=== PATIENT | male | born 1955 | race Caucasian/White ===

== ENCOUNTER 2018-08-26 21:42 | Emergency (ER) | payer BC, SELFPAY ==
[2018-08-26 21:48] VITALS: BP 122/70; PULSE 69; RESP 18; TEMP 36.1; O2SAT 98
--- NOTE | 2018-08-26 21:57 | ED.EAR ---
HPI - Ear Problem <Sravani Rodrigez PA-C - Last Filed: 08/26/18 22:08> General Chief complaint: Ear Stated complaint: part of hearing aid stuck in ear Time Seen by Provider: 08/26/18 21:57 Source: patient Mode of arrival: ambulatory Limitations: no limitations History of Present Illness HPI Narrative: This 63-year-old male states that a piece of his hearing aid came off in his ear a short time ago and he was unable to remove it. He is not having any pain, no drainage from the ear or any other new complaints on systems review. He is feeling well otherwise Related Data Home Medications Medication Instructions Recorded Confirmed naproxen sodium 220 mg tablet 440 mg PO BID PRN 06/03/18 08/04/18 Previous Rx's Medication Instructions Recorded bupropion HCl SR 100 mg tablet,12 100 mg PO BID #60 each 06/03/18 hr sustained-release meloxicam 15 mg tablet 15 mg PO DAILY #30 tab 08/15/18 Allergies Allergy/AdvReac Type Severity Reaction Status Date / Time No Known Allergies Allergy Uncoded 06/03/18 15:00 Review of Systems <Sravani Rodrigez PA-C - Last Filed: 08/26/18 22:08> Review of Systems ROS Unobtainable: All systems reviewed & are unremarkable except as noted in HPI and below PFSH <Sravani Rodrigez PA-C - Last Filed: 08/26/18 22:08> Medical History (Updated 08/26/18 @ 22:07 by Sravani Rodrigez PA-C) Dupuytren contracture (Chronic) Smoker (Chronic) H/O adenomatous polyp of colon (Inactive ~05/2013) No pertinent family history (Acute) Surgical History (Updated 08/26/18 @ 22:07 by Sravani Rodrigez PA-C) No pertinent past surgical history (Acute) Social History Smoking Status: Current every day smoker Social History Smoking Status: Current every day smoker Exam <Sravani Rodrigez PA-C - Last Filed: 08/26/18 22:08> Narrative Exam Narrative: GENERAL APPEARANCE: Patient sitting comfortably, in no distress. HEENT: PERRL, EOMI, both TMs are intact with normal light reflexes, minimal cerumen on the left, no erythema or drainage (after removal of foreign body) LUNGS: Clear to auscultation bilaterally. HEART: Rate and rhythm regular without murmur, normal S1 and S2, no S3 or S4. Initial Vital Signs Initial Vital Signs: Vital Signs Temperature 96.9 F L 08/26/18 21:48 Pulse Rate 69 08/26/18 21:48 Respiratory Rate 18 08/26/18 21:48 Blood Pressure 122/70 08/26/18 21:48 Pulse Oximetry 98 08/26/18 21:48 <Lesley De Luna DO - Last Filed: 08/27/18 02:30> Initial Vital Signs Initial Vital Signs: Vital Signs Temperature 96.9 F L 08/26/18 21:48 Pulse Rate 69 08/26/18 21:48 Respiratory Rate 18 08/26/18 21:48 Blood Pressure 122/70 08/26/18 21:48 Pulse Oximetry 98 08/26/18 21:48 Course <Sravani Rodrigez PA-C - Last Filed: 08/26/18 22:08> Vital Signs - 8 hr 08/26/18 21:48 Temperature 96.9 F L Pulse Rate 69 Respiratory Rate 18 Blood Pressure 122/70 Pulse Oximetry 98 <Lesley De Luna DO - Last Filed: 08/27/18 02:30> Vital Signs - 8 hr 08/26/18 21:48 Temperature 96.9 F L Pulse Rate 69 Respiratory Rate 18 Blood Pressure 122/70 Pulse Oximetry 98 Discharge Plan Departure Patient Disposition: Home Clinical Impression: Foreign body in left ear, initial encounter Discharge Date/Time: 08/26/18 22:22 Interventions: ED Discharge Assessment Last Done: 08/26/18 22:22 Instructions: DI for Removal of Foreign Body From Ear Activity Restrictions/Additional Instructions: Your ear canal appears normal now, no signs of irritation or infection. Please see your PCP if your ear does not continue to feel normal over the next few days. Prescriptions: No Action meloxicam 15 mg tablet 15 mg PO DAILY Qty: 30 RF: 3 naproxen sodium [Aleve] 220 mg tablet 440 mg PO BID PRNRF: 0 Hold Instructions: While on Ketorolac bupropion HCl 100 mg tablet sustained-release 12 hr 100 mg PO BID Qty: 60 RF: 3 Referrals: Bony Hargrove MD [Primary Care Provider] - <Lesley De Luna DO - Last Filed: 08/27/18 02:30> Cosign ED Attending Delaney Attestation: I was immediately available in the department for consultation. Documentation has been reviewed. I agree with assessment and plan.
== END 2018-08-26 22:22 | disposition home or self-care (01) ==
PROVIDERS: Emergency Provider Internal Medicine; Family Provider Internal Medicine; PCP Internal Medicine
DX: T16.2XXA Foreign body in left ear, initial encounter (principal)
CPT/HCPCS: 99282

== ENCOUNTER 2018-10-06 12:52 | Day surgery (SDC) | payer BC, SELFPAY ==
--- NOTE | 2018-10-06 | PATH_ITS ---
[facility] Accession Number: [id number] . 01 Material submitted: . sigmoid colon - SIGMOID POLYP . 02 Diagnosis: Sigmoid Colon, Polyp: Hyperplastic polyp. Additional step sections examined. [facility]/10/09/2018 . 02 Electronically signed: . Tulio Dangelo MD, PhD, Pathologist NPI- [id number] . 01 Gross description: . SIGMOID POLYP: Received in formalin are 2 fragment(s) of willis, soft tissue measuring 0.5 x 0.3 x 0.3 cm to 0.3 x 0.2 x 0.2 cm submitted entirely in 1 cassette(s) /CKI /CKI . 02 Pathologist provided ICD-10: K63.5 . 02 CPT . 299161 Performed at: 01 [facility] [address] [place] [address], [place], [place] [id number] MD Adis Oneill MD Phone: [phone] Performed at: 02 [facility] [address] [place], [place] [id number] MD Ashley Parr MD Phone: [phone]
[2018-10-06 13:25] VITALS: BP 123/75; PULSE 87; RESP 16; TEMP 36.3; O2SAT 99; BMI 19.8
[2018-10-06] MEDS: SODIUM CHLORIDE 0.9% 1,000 ML 200 ML IV (13:28)
--- NOTE | 2018-10-06 15:03 | P.HP_ITS ---
History of Present Illness Date Patient Seen: 10/06/18 Time Patient Seen: 15:01 Chief complaint: [id number] SCREENING COLONOSCOPY Narrative: 63yo M for surveillance colonoscopy. Last in 2013 and he said a pre- cancerous polyp was found so he went back for a rectal surgery. No current symptoms. Patient History Medical History Dupuytren contracture (Chronic) Smoker (Chronic) H/O adenomatous polyp of colon (Inactive ~05/2013) No pertinent family history (Acute) Surgical History No pertinent past surgical history (Acute) Social History household members: none Smoking Status: Current every day smoker Family & Social History Social History: household members none Tobacco & Substance use: Smoking Status Current every day smoker Meds Home Medications Medication Instructions Recorded Confirmed Type bupropion HCl SR 100 mg tablet,12 100 mg PO BID #60 each 06/03/18 10/06/18 Rx hr sustained-release meloxicam 15 mg tablet 15 mg PO DAILY #90 tab 09/18/18 10/06/18 Rx Allergies Allergy/AdvReac Type Severity Reaction Status Date / Time No Known Allergies Allergy Uncoded 10/06/18 13:30 Review of Systems Constitutional Constitutional: Reports as per HPI Exam Vital Signs (past 8 hours): - 10/06/18 13:25 Temperature 97.4 F L Pulse Rate 87 Respiratory Rate 16 Blood Pressure 123/75 Pulse Oximetry 99 Oxygen Delivery Method Room Air Narrative Exam Narrative: AAO, NAD, male of healthy weight EOMI, MMM, no scleral icterus unlabored RA soft, nt/nd MAEW visible skin dry and intact Assessment & Plan Assessment & Plan narrative: - surveillance colonoscopy --> all R/B/A discussed and pt wishes to proceed
[2018-10-06] MEDS: MIDAZOLAM 5 MG/5 ML VIAL IV ×2 (15:38)
[2018-10-06] MEDS: fentaNYL 250 MCG/5 ML INJ IV (15:40)
[2018-10-06 15:47] VITALS: BP 120/84; PULSE 68; RESP 12; TEMP 36.3; O2SAT 97
--- NOTE | 2018-10-06 15:48 | P.OP.ENDO_ITS ---
Operative Date/Time/Diagnoses Date of procedure: 10/06/18 Time of procedure: 15:45 Pre-op diagnosis: history of colon polyps Post-op diagnosis: same Procedure & Clinicians Study performed: Surveillance Colonoscopy Same procedure as scheduled: Yes Indications: 63yo M with history of a pre-cancerous polyp removed via reported rectal surgery 5 years ago. This is his first surveillance scope. No symptoms. Surgeon: Skylar Jackson Procedure Notes SCOAP/Timeout: 1506 Procedure in detail: After obtaining informed consent, the patient was brought to the GI suite and placed in the left lateral decubitus position on the e xamination table. After placement of appropriate monitors, the patient was given incremental doses of Versed and Fentanyl until an appropriate level of sedation was achieved. A time out was held per SCOAP protocol. A digital rectal examination was performed and did not reveal any masses or obstructing lesions but a mildly enlarged prostate is noted. The colonoscope was gently passed into the patient's anus and the entire colon navigated to the level of the cecum with some difficulty due to a tortuous colon. Prep was adequate. Once in the cecum, the scope was slowly withdrawn being sure to go before and beyond all mucosal folds and prominences as able to get a thorough examination. A single 2mm sigmoid polyp is noted and removed for biopsy. Other findings include a few scattered diverticula. No specific scar or anastomosis is noted in the rectum At the level of the rectal vault, the scope was retroflexed and the internal anal canal was examined. The scope was straightened and air aspirated from the colon. The instrument was removed from the patient's body and the procedure was concluded. The patient was allowed to awaken from sedation without difficulty and taken to the post-anesthesia care unit in good condition. Scope withdrawal time: 11 min Sedation minutes: 36 Findings: diverticulosis (few, scattered) and polyp (sigmoid (40cm), 2mm) Specimen(s): other (sigmoid polyp) Complications: none Impression: 1. Small, scattered diverticulosis 2. 2mm sigmoid polyp- removed for biopsy 3. Tortuous colon Recommendations: Colonscopy in 5 years (pending path) and High fiber diet Follow up: weeks Disposition: PACU
[2018-10-06 15:52] VITALS: BP 111/76; PULSE 68; RESP 12; O2SAT 96
[2018-10-06 15:56] VITALS: BP 118/75; PULSE 66; RESP 13; O2SAT 97
[2018-10-06 16:01] VITALS: BP 116/73; PULSE 67; RESP 8; O2SAT 97
[2018-10-06 16:45] VITALS: BP 120/70; PULSE 60; RESP 20; TEMP 36.8; O2SAT 99
== END 2018-10-06 16:45 | disposition home or self-care (01) ==
PROVIDERS: Family Provider Internal Medicine; PCP Internal Medicine; Visit Provider Surgery
PROC: 0DJD8ZZ Inspection of Lower Intestinal Tract, Via Natural or Artificial Opening Endoscopic (ICD-10-PCS; CPT 45378; principal; 2018-10-06 16:00)
DX: Z86.010 Personal history of colon polyps (principal); K57.30 Diverticulosis of large intestine without perforation or abscess without bleeding; F17.210 Nicotine dependence, cigarettes, uncomplicated; D12.5 Benign neoplasm of sigmoid colon
CPT/HCPCS: 45380; 99152; 99153; J2250; J3010

== ENCOUNTER → 2018-10-25 07:57 | Outpatient (CLI) | payer BC, SELFPAY ==
[2018-10-25 09:34] LABS: Alanine Aminotransferase 23 IU/L (21-72); Albumin 4.3 g/dL (3.5-5.0); Albumin Globulin Ratio 1.7 (1.0-2.8); Alkaline Phosphatase 58 U/L (38-126); Aspartate Aminotransferase 22 IU/L (17-59); BUN Creatinine Ratio 28.8 (6-22); Bilirubin Total 0.6 mg/dL (0.2-1.3); Blood Urea Nitrogen 23 mg/dL (9-20); Calcium 9.6 mg/dL (8.4-10.2); Carbon Dioxide 31 mmol/L (22-32); Chloride 102 mmol/L (98-107); Cholesterol 173 mg/dL (140-199); Estimated Glomerular Filt Rate > 60.0 mL/min (>60); Globulin 2.5 g/dL (1.7-4.1); Glucose 93 mg/dL (80-110); HDL Cholesterol 83 mg/dL (40-60); HEMOLYSIS < 15 (0-50); LDL Cholesterol Calculated 80 mg/dL (<100); Sodium 141 mmol/L (137-145); Total Protein 6.8 g/dL (6.3-8.2); Triglycerides 50 mg/dL (35-150)
[2018-10-25 09:41] LABS: Potassium 5.5 mmol/L (3.4-5.1)
[2018-10-25 10:01] LABS: Prostate Specific Antigen Scrn 1.46 ng/mL (0.1-4.0)
== END ==
PROVIDERS: Family Provider Internal Medicine; PCP Internal Medicine; Visit Provider Internal Medicine
DX: Z00.00 Encounter for general adult medical examination without abnormal findings (principal); Z12.5 Encounter for screening for malignant neoplasm of prostate; Z13.1 Encounter for screening for diabetes mellitus; Z13.6 Encounter for screening for cardiovascular disorders
CPT/HCPCS: 36415; 80053; 80061; G0103

== ENCOUNTER → 2019-06-04 16:13 | Outpatient (CLI) | payer MEDICARE, OTHER, SELFPAY ==
--- NOTE | 2019-06-04 16:21 | DI.RAD.S_ITS ---
PROCEDURE: XR HIP W PEL IF DONE RT 2V INDICATIONS: RIGHT HIP PAIN TECHNIQUE: AP pelvis with lateral view(s) of the left and right hip(s). COMPARISON: None. FINDINGS: Bones: No fractures or dislocations. Pelvic ring appears intact. No suspicious bony lesions. Mild degeneration, with symmetric appearance. Lower lumbar spondylosis and facet arthropathy. Soft tissues: The visualized bowel gas pattern is normal. No suspicious soft tissue calcifications. IMPRESSION: Mild bilateral hip joint degeneration Dictated by: Jose Pete M.D. on 06/04/2019 at 17:24 Approved by: Jose Pete M.D. on 06/04/2019 at 17:25
== END ==
PROVIDERS: Family Provider Internal Medicine; PCP Internal Medicine; Referring Provider Internal Medicine; Visit Provider Internal Medicine
DX: M25.551 Pain in right hip (principal); M16.0 Bilateral primary osteoarthritis of hip
CPT/HCPCS: 73502

== ENCOUNTER → 2019-06-05 08:09 | Outpatient (CLI) | payer MEDICARE, BC, SELFPAY ==
[2019-06-05 09:00] LABS: Alanine Aminotransferase 46 IU/L (<50); Albumin 4.1 g/dL (3.5-5.0); Albumin Globulin Ratio 1.5 (1.0-2.8); Alkaline Phosphatase 66 U/L (38-126); Aspartate Aminotransferase 36 IU/L (17-59); BUN Creatinine Ratio 24.4 (6-22); Bilirubin Total 0.5 mg/dL (0.2-1.3); Blood Urea Nitrogen 22 mg/dL (9-20); Calcium 9.6 mg/dL (8.4-10.2); Carbon Dioxide 30 mmol/L (22-32); Chloride 105 mmol/L (98-107); Cholesterol 190 mg/dL (140-199); Estimated Glomerular Filt Rate > 60.0 mL/min (>60); Globulin 2.8 g/dL (1.7-4.1); Glucose 95 mg/dL (80-110); HDL Cholesterol 65 mg/dL (40-60); HEMOLYSIS < 15 (0-50); LDL Cholesterol Calculated 113 mg/dL (<100); Sodium 140 mmol/L (137-145); Total Protein 6.9 g/dL (6.3-8.2); Triglycerides 62 mg/dL (35-150)
[2019-06-05 09:03] LABS: Potassium 5.5 mmol/L (3.4-5.1)
[2019-06-05 09:25] LABS: Prostate Specific Antigen Scrn 1.09 ng/mL (0.1-4.0)
== END ==
PROVIDERS: Family Provider Internal Medicine; PCP Internal Medicine; Referring Provider Internal Medicine; Visit Provider Internal Medicine
DX: Z13.6 Encounter for screening for cardiovascular disorders (principal); Z12.5 Encounter for screening for malignant neoplasm of prostate
CPT/HCPCS: 36415; 80053; 80061; G0103

== ENCOUNTER → 2019-08-22 15:03 | Outpatient (CLI) | payer MEDICARE, BC, SELFPAY ==
[2019-08-23 08:28] LABS: COVID19 Sendout Not Detected (Not Detect)
== END ==
PROVIDERS: Family Provider Internal Medicine; PCP Internal Medicine; Visit Provider Physician Assistant
DX: Z01.818 Encounter for other preprocedural examination (principal)
CPT/HCPCS: 87635

== ENCOUNTER 2019-08-25 08:15 | Day surgery (SDC) | payer MEDICARE, OTHER, SELFPAY ==
[2019-08-19 11:35] VITALS: BMI 22.9
--- NOTE | 2019-08-21 14:20 | SUR.PREOP ---
per pt has covid testing schd on Thursday 08/24 @ [facility]
[2019-08-25] VITALS (8 sets, daily range): BP systolic 100–120; BP diastolic 56–75; PULSE 54–79; RESP 10–16; TEMP 36.6–36.9; O2SAT 93–100; BMI 22.9
[2019-08-25] MEDS: LACTATED RINGERS 1,000 ML 42 ML IV (08:32)
--- NOTE | 2019-08-25 10:22 | PM.PREOP ---
Pre-operative Note COVID-19 COVID-19 status: Negative Result date/Date tested (Pos, Neg/Pending): 08/22/19 Interval Note History & Physical reviewed/Exam performed by Physician: Yes Changes to H&P: No
[2019-08-25] MEDS: CEFAZOLIN 2 GM/100 ML FROZ.PIGGY IV (10:25)
--- NOTE | 2019-08-25 10:48 | SUR.OPER ---
Supine on padded OR bed, head on pillow, arms secured on padded arm boards at <90 degrees abduction, legs uncrossed, safety belt at thigh, tape over blanket over lower legs.
[2019-08-25] MEDS: BUPIVACAINE 0.5% (PF) VIAL 30 ML INJ (10:53)
[2019-08-25] MEDS: HYDROCODONE/ACET 5/325 TABLET 1 TAB PO (12:01)
--- NOTE | 2019-08-25 18:14 | PM.OP.1 ---
Operative Date/Time/Diagnoses Date of procedure: 08/25/19 Time of procedure: 11:31 Pre-op diagnosis: Reducible right inguinal hernia. Post-op diagnosis: same (Direct hernia) Procedure & Clinicians Procedure: Repair with plug and patch technique Same procedure as scheduled: Yes Indications: Patient is a gentleman with a symptomatic right inguinal hernia brought in for repair. Surgeon: Mike Saba Click Yes if Unassisted: Yes Anesthesia Type: General Operative Notes Findings: Direct right inguinal hernia. Closure Type: primary Specimen(s): none sent Prosthetic devices, grafts, tissues, transplants, or devices: Mesh. Large plug and patch used Estimated Blood Loss (mL): 5 Blood products transfused: none Procedure in detail: The patient was placed supine on the operating room table and underwent general LMA anesthesia. He was prepped and draped in the usual fashion. A transverse incision was made overlying the right internal ring and carried down to the level of the external oblique. The external oblique was opened parallel with its fibers through the external ring. The cord structures were elevated. The cremaster was opened proximally and search made for an indirect sac. None was found. The floor was examined and was found to be obliterated by hernia. The thin layer which was a remnant of the transversalis was opened and the underlying preperitoneal fat reduced. A large plug was placed in the defect and tacked into place with interrupted sutures. A patch was placed across the floor and tacked at the pubic tubercle, the posterior lamella of the anterior rectus sheath, the ilioinguinal ligament, and superior lateral to the cord. The opening was modified as necessary to prevent tight constriction of the cord. Sutures of 0 Ethibond were used to secure the mesh. The external oblique was closed with a running 3 0 Vicryl. The subcu was closed with interrupted 3 0 Vicryl. The skin was closed with a running 4 0 Vicryl subcuticular stitch and Steri-Strips. Dressing was applied, the patient was awakened, and the patient was taken to the recovery area in good condition. Complications: none Post-operative Condition: stable Disposition: PACU
== END 2019-08-25 13:00 | disposition home or self-care (01) ==
PROVIDERS: Family Provider Internal Medicine; PCP Internal Medicine; Referring Provider Specialist; Visit Provider Specialist
PROC: (CPT 49505; principal; 2019-08-25 09:15)
DX: K40.90 Unilateral inguinal hernia, without obstruction or gangrene, not specified as recurrent (principal); F17.210 Nicotine dependence, cigarettes, uncomplicated
CPT/HCPCS: 49505; C1781; J0690; J1100; J2250; J2405; J2704; J3010

== ENCOUNTER 2020-06-23 07:18 | Emergency (ER) | payer OTHER, SELFPAY ==
[2020-06-23 07:20] VITALS: BP 175/83; PULSE 85; RESP 15; TEMP 37; O2SAT 93; BMI 20.4
--- NOTE | 2020-06-23 07:37 | PC.NURSE ---
see injury assessment. Pt having upper back pain and right knee pain
--- NOTE | 2020-06-23 07:40 | PC.NURSE ---
Pts pH bilateral eye 7.0
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
[2020-06-23] MEDS: IBUPROFEN 400 MG TABLET PO (07:55)
[2020-06-23] MEDS: OXYCODONE/ACETAMINOPHEN 5/325 TABLET 1 TAB PO (07:55)
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
[2020-06-23 09:22] VITALS: BP 119/71; PULSE 74; O2SAT 96
== END 2020-06-23 09:23 | disposition home or self-care (01) ==
PROVIDERS: Emergency Provider Emergency Medicine; Family Provider Internal Medicine; PCP Internal Medicine
DX: S16.1XXA Strain of muscle, fascia and tendon at neck level, initial encounter (principal); V43.52XA Car driver injured in collision with other type car in traffic accident, initial encounter
CPT/HCPCS: 72072; 99283

== ENCOUNTER → 2020-07-21 17:14 | Outpatient (CLI) | payer OTHER, SELFPAY ==
--- NOTE | 2020-07-21 17:16 | DI.RAD.S_ITS ---
PROCEDURE: XR PELVIS 1-2V INDICATIONS: left and right hip pain TECHNIQUE: 1 view(s) of the pelvis acquired. COMPARISON: [facility], CR, XR HIP W PEL IF DONE RT 2V, 06/04/2019, 16:16. FINDINGS: Bones: No fractures or dislocations. No suspicious bony lesions. Mild joint narrowing with periarticular osteophyte formation. Soft tissues: Visualized bowel gas pattern is normal. No suspicious soft tissue calcifications. IMPRESSION: Mild symmetric hip joint degeneration unchanged from prior examination dated 06/04/2019 Dictated by: Mitch Voss [facility] Interpreted: Judson Mckeon MD on 07/22/2020 at 8:55 Approved by: Judson Mckeon M.D. on 07/22/2020 at 10:21
== END ==
PROVIDERS: Family Provider Internal Medicine; PCP Internal Medicine; Referring Provider Internal Medicine; Visit Provider Internal Medicine
DX: M16.11 Unilateral primary osteoarthritis, right hip (principal); M25.552 Pain in left hip; M25.551 Pain in right hip
CPT/HCPCS: 72170

== ENCOUNTER → 2020-12-29 12:55 | Outpatient (CLI) | payer OTHER, MEDICARE, SELFPAY ==
--- NOTE | 2020-12-29 12:59 | DI.RAD.S_ITS ---
PROCEDURE: XR LUMBAR SPINE 2-3V INDICATIONS: low back pain TECHNIQUE: 3 views of the lumbar spine were acquired. COMPARISON: None. FINDINGS: Bones: 5 [id number] vertebrae are present. There is mild straightening of normal lumbar lordosis. Degenerative endplate changes and bilateral facet arthrosis at L2-3 through L4-5 levels are seen.. No vertebral body compression fractures. No suspicious bony lesions. Soft tissues: Overlying bowel gas pattern is normal. No suspicious soft tissue calcifications. IMPRESSION: Mild degenerative disc disease in lumbar spine as above. No acute compression fracture or significant spondylolisthesis. Dictated by: Mitchel Santos M.D. on 12/29/2020 at 16:01 Approved by: Mitchel Santos M.D. on 12/29/2020 at 16:02
== END ==
PROVIDERS: Family Provider Internal Medicine; PCP Internal Medicine; Referring Provider Nurse Practitioner Family; Visit Provider Nurse Practitioner Family
DX: M54.5 Low back pain (principal); M51.36 Other intervertebral disc degeneration, lumbar region; M47.816 Spondylosis without myelopathy or radiculopathy, lumbar region
CPT/HCPCS: 72100

== ENCOUNTER → 2024-02-20 10:15 | Outpatient (CLI) | payer OTHER, SELFPAY ==
[2024-02-20 11:34] LABS: Influenza A - CEPHEID Flu A NEGATIVE (NEGATIVE); Influenza B - CEPHEID Flu B NEGATIVE (NEGATIVE); Respiratory Syncytial Virus Negative (Negative)
[2024-02-20 11:36] LABS: COVID-19 CEPHEID 4-PLEX PCR Negative (Negative)
== END ==
PROVIDERS: Family Provider Internal Medicine; PCP Internal Medicine; Visit Provider Nurse Practitioner Family
DX: R05.9 Cough, unspecified (principal); R53.81 Other malaise; R53.83 Other fatigue
CPT/HCPCS: 0241U

== ENCOUNTER → 2024-02-20 10:26 | Outpatient (CLI) | payer OTHER, SELFPAY ==
--- NOTE | 2024-02-20 10:28 | DI.RAD.S_ITS ---
PROCEDURE: XR CHEST 2V INDICATIONS: Cough TECHNIQUE: 2 views of the chest were acquired. COMPARISON: None. FINDINGS: Surgical changes and devices: None. Lungs and pleura: Multifocal opacities, most pronounced within the left mid and lower lung durán. Rounded nodule at the right base, may represent a nipple shadow. Mediastinum: Mediastinal contours are normal. Heart size is normal. Bones and chest wall: No suspicious bony abnormalities. Soft tissues appear unremarkable. IMPRESSION: Multifocal opacities, most pronounced within the right mid and lower lung field. Findings are most consistent with multifocal pneumonia. Recommend follow-up imaging after appropriate treatment to ensure resolution. Rounded nodule at the right lung base, may represent a nipple shadow. Attention on follow-up radiograph or continued low-dose chest CT lung cancer screening. Dictated by: Francisco Carlos M.D. on 02/20/2024 at 14:23 Approved by: Francisco Carlos M.D. on 02/20/2024 at 14:25
== END ==
PROVIDERS: Family Provider Internal Medicine; PCP Internal Medicine; Referring Provider Nurse Practitioner Family; Visit Provider Nurse Practitioner Family
DX: R05.9 Cough, unspecified (principal); R53.81 Other malaise; R53.83 Other fatigue; R91.1 Solitary pulmonary nodule
CPT/HCPCS: 0241U; 71046

== ENCOUNTER 2024-04-22 17:31 | Emergency (ER) | payer OTHER, SELFPAY ==
[2024-04-22 17:41] VITALS: BP 150/85; PULSE 76; RESP 14; TEMP 36.6; O2SAT 100; BMI 20.4
[2024-04-22 20:03] VITALS: BP 153/86; PULSE 70; RESP 16; O2SAT 100
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
[2024-04-22 21:20] VITALS: BP 110/70; PULSE 69; RESP 18; O2SAT 98
== END 2024-04-22 21:22 | disposition home or self-care (01) ==
PROVIDERS: Emergency Provider Emergency Medicine
DX: S16.1XXA Strain of muscle, fascia and tendon at neck level, initial encounter (principal); V89.2XXA Person injured in unspecified motor-vehicle accident, traffic, initial encounter
CPT/HCPCS: 72040; 99281; 99283

== ENCOUNTER 2024-06-17 13:02 | Emergency (ER) | payer OTHER, SELFPAY ==
[2024-06-17 13:06] VITALS: BP 141/81; PULSE 70; RESP 18; TEMP 36.6; O2SAT 100; BMI 21.1
--- NOTE | 2024-06-17 13:06 | DI.RAD.S_ITS ---
PROCEDURE: XR CHEST 1V INDICATIONS: chest pain TECHNIQUE: One view of the chest was acquired. COMPARISON: [facility], CR, XR CHEST 2V, 02/20/2024, 10:27. FINDINGS: Surgical changes and devices: None. Lungs and pleura: Lungs are clear. No pleural effusions or pneumothorax. Mediastinum: Mediastinal contours appear normal. Heart size is normal. Bones and chest wall: No suspicious bony lesions. Overlying soft tissues appear unremarkable. IMPRESSION: No acute cardiopulmonary pathology. Dictated by: Mitchel Santos M.D. on 06/17/2024 at 14:05 Approved by: Mitchel Santos M.D. on 06/17/2024 at 14:05
--- NOTE | 2024-06-17 13:15 | EKG_ITS ---
[id number] [address] Test Date: 2024-06-17 Pat Name: Gurpreet Peña Department: Room: Gender: Male Supervisor Baking: ROBB : 1955 Requested By: Order Number: [id number] Reading MD: Bony Hargrove MD Measurements Intervals [place] Rate: 63 P: 86 AR: 154 QRS: 85 QRSD: 82 T: 71 QT: 396 QTc: 405 Interpretive Statements Normal sinus rhythm Possible Left atrial enlargement Electronically Signed On 06-18-2024 7:28:28 PDT by Bony Hargrove MD
[2024-06-17] MEDS: ASPIRIN 81 MG CHEW TAB 324 MG PO (13:27)
[2024-06-17 13:38] LABS: Add Manual Diff / Slide Review NO; Basophils Absolute Auto 100 /uL (0-100); Basophils Percent Auto 1.8 % (0-2); Eosinophils Absolute Auto 100 /uL (0-450); Eosinophils Percent Auto 1.6 % (2-4); Hematocrit 46.2 % (41-53); Hemoglobin 15.4 g/dL (13.5-17.5); Lymphocytes Absolute Auto 1300 /uL (1100-4500); Lymphocytes Percent Auto 18.6 % (25-40); Mean Corpuscular HGB Conc 33.4 % (30-36); Mean Corpuscular Hemoglobin 30.8 PG (26-34); Mean Corpuscular Volume 92.4 fL (80-100); Monocytes Absolute Auto 700 /uL (0-900); Monocytes Percent Auto 10.3 % (3-14); Neutrophils Absolute Auto 4700 /uL (1500-7000); Neutrophils Percent Auto 67.7 % (50-75); Platelet Count 302 X10^3/uL (150-400); Red Blood Cell Count 5.01 X10^6/uL (4.5-5.9); Red Cell Distribution Width 13.8 % (11.6-14.8); White Blood Cell Count 6.9 X10^3/uL (4.5-11.0)
[2024-06-17 13:40] LABS: Prothrombin Time 11.1 SECONDS (9.4-12.5)
[2024-06-17 13:43] LABS: PTT Partial Thromboplastin Tim 36 SECONDS (25.1-36.5)
[2024-06-17 13:45] LABS: Alanine Aminotransferase 57 IU/L (<50); Albumin 4.7 g/dL (3.5-5.0); Albumin Globulin Ratio 1.6 (1.0-2.8); Alkaline Phosphatase 86 U/L (38-126); Aspartate Aminotransferase 44 IU/L (17-59); BUN Creatinine Ratio 25.9 (6-22); Bilirubin Total 0.4 mg/dL (0.2-1.3); Blood Urea Nitrogen 22 mg/dL (9-20); Calcium 9.3 mg/dL (8.4-10.2); Carbon Dioxide 28 mmol/L (22-32); Chloride 101 mmol/L (98-107); Creatine Kinase 90 U/L (55-170); Estimated Glomerular Filt Rate > 60 mL/min (>60); Glucose 103 mg/dL (80-110); HEMOLYSIS 16 (0-50); Lipase 240 U/L (23-300); Potassium 4.6 mmol/L (3.4-5.1); Sodium 137 mmol/L (137-145); Total Protein 7.7 g/dL (6.3-8.2)
[2024-06-17 13:57] LABS: NT-proBNP (BNP-Adult 18+) 52 pg/mL (<125); Troponin I < 0.012 ng/mL (0.01-0.034)
--- NOTE | 2024-06-17 15:09 | ED_ITS ---
HPI - Chest Pain General Chief Complaint: Chest Pain Stated Complaint: chest pain, PCP sent in Time Seen by Provider: 06/17/24 14:57 Source: patient Mode of arrival: Ambulatory Limitations: no limitations History of Present Illness HPI narrative: Patient here for reproducible chest pain and upper abdominal pain. Patient states has had increased activity in the past 2 weeks. 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 In addition he has started a new exercise regimen with light 10 lb weights with his arms. Pain is worse with deep breath and twisting of the trunk and leaning forward. Is not painful with palpation. Patient does occasionally smoke. No history of hypertension hyperlipidemia. No primary family history of coronary disease. Patient has low heart score. Related Data Allergies Allergy/AdvReac Type Severity Reaction Status Date / Time No Known Drug Allergies Allergy Verified 04/22/24 17:41 Review of Systems Review of Systems Narrative: GENERAL: Negative chills, fatigue, malaise, fever, sweats. HEENT: Negative sinus pain, ear pain, sore throat RESPIRATORY: Negative dyspnea, cough CARDIOVASCULAR: Negative chest pain, palpitations GASTROINTESTINAL: Negative vomiting, nausea, abdominal pain : Negative dysuria, frequency, hematuria MUSCULOSKELETAL: Positive muscle or bony pain SKIN: Negative rash, skin lesions NEUROLOGIC: Negative weakness, numbness ROS Unobtainable: All systems reviewed & are unremarkable except as noted in HPI and below Patient History Medical History Degenerative joint disease of right hip Dupuytren contracture H/O adenomatous polyp of colon (~05/2013) No pertinent family history Smoker Surgical History No pertinent past surgical history S/P right inguinal hernia repair (08/25/19) Social History household members: none Smoking Status: Current every day smoker alcohol intake: never Smoking Status: Current every day smoker tobacco type: cigarettes and vaping alcohol intake frequency: holidays/special occasions only Exam Narrative Exam Narrative: GENERAL: in no distress, not toxic not dyspneic HEAD: Normocephalic. EYES: Pupils equal round ENT: Mucous membranes moist. NECK: Trachea midline. CARDIOVASCULAR: Regular rate and rhythm RESPIRATORY: Clear to auscultation. Breath sounds equal bilaterally. No wheezes, rales, or rhonchi. Reproducible sternal pain with deep breath movement and raising his arms above his head and across his chest but no pain on palpation of the chest wall. GASTROINTESTINAL: Abdomen soft, non-tender EXTREMITIES: No gross deformities. BACK: No flank tenderness. NEURO: AOx4. Clear speech SKIN: Warm and dry PSYCH: Not anxious, is cooperative Initial Vital Signs Initial Vital Signs: Vital Signs Temperature 98 F 06/17/24 13:06 Pulse Rate 70 06/17/24 13:06 Respiratory Rate 18 06/17/24 13:06 Blood Pressure 141/81 H 06/17/24 13:06 Pulse Oximetry 100 06/17/24 13:06 Oxygen Delivery Method Room Air 06/17/24 13:06 Course Orders Ordered: Discontinued Medications Aspirin (Aspirin 81 Mg Chew Tab) 324 mg PO NOW ONE Stop: 06/17/24 13:07 Last Admin: 06/17/24 13:27 Dose: 324 mg Documented By: HUA Ketorolac Tromethamine (Ketorolac 30 Mg/Ml Vial) 15 mg IV NOW ONE Stop: 06/17/24 15:10 Last Admin: 06/17/24 15:28 Dose: 15 mg Documented By: CORY Vital Signs Vital signs: Vital Signs - 8 hr 06/17/24 13:06 06/17/24 15:23 06/17/24 15:25 Temperature 98 F Pulse Rate 70 60 57 L Respiratory Rate 18 Blood Pressure 141/81 H Pulse Oximetry 100 99 100 Oxygen Delivery Method Room Air 06/17/24 15:25 06/17/24 15:30 06/17/24 15:30 Temperature Pulse Rate 58 L Respiratory Rate Blood Pressure 151/90 H 122/74 Pulse Oximetry 100 Oxygen Delivery Method MDM - Chest Pain Lab Data 06/17/24 13:20 06/17/24 13:20 Labs: Lab Results 06/17/24 Range/Units 13:20 WBC 6.9 (4.5-11.0) X10^3/uL RBC 5.01 (4.5-5.9) X10^6/uL Hgb 15.4 (13.5-17.5) g/dL Hct 46.2 (41-53) % MCV 92.4 (80-100) fL MCH 30.8 (26-34) PG MCHC 33.4 (30-36) % RDW 13.8 (11.6-14.8) % Plt Count 302 (150-400) X10^3/uL Neut % (Auto) 67.7 (50-75) % Lymph % (Auto) 18.6 L (25-40) % [place] % (Auto) 10.3 (3-14) % Eos % (Auto) 1.6 L (2-4) % Baso % (Auto) 1.8 (0-2) % Neut # (Auto) 4700 (1783-4298) /uL Lymph # (Auto) 1300 (8683-3786) /uL [place] # (Auto) 700 (0-900) /uL Eos # (Auto) 100 (0-450) /uL Baso # (Auto) 100 (0-100) /uL PT 11.1 (9.4-12.5) SECONDS INR 1.0 (0.9-1.3) APTT 36 (25.1-36.5) SECONDS D-Dimer 484 (<500) ng/ml Sodium 137 (137-145) mmol/L Potassium 4.6 (3.4-5.1) mmol/L Chloride 101 (98-107) mmol/L Carbon Dioxide 28 (22-32) mmol/L BUN 22 H (9-20) mg/dL Creatinine 0.85 (0.66-1.25) mg/dL Estimated GFR > 60 (>60) mL/min BUN/Creatinine Ratio 25.9 H (6-22) Glucose 103 (80-110) mg/dL Calcium 9.3 (8.4-10.2) mg/dL Magnesium 2.0 (1.6-2.3) mg/dL Total Bilirubin 0.4 (0.2-1.3) mg/dL AST 44 (17-59) IU/L ALT 57 H (<50) IU/L Alkaline Phosphatase 86 (38-126) U/L Total Creatine Kinase 90 (55-170) U/L Troponin I < 0.012 (0.01-0.034) ng/mL NT-Pro-B Natriuret Pep 52 (<125) pg/mL Total Protein 7.7 (6.3-8.2) g/dL Albumin 4.7 (3.5-5.0) g/dL Globulin 3.0 (1.7-4.1) g/dL Albumin/Globulin Ratio 1.6 (1.0-2.8) Lipase 240 (23-300) U/L Imaging Data Chest x-ray: Radiologist's Impression: [address] [address] XRay Report Signed Patient: Gurpreet Peña MR#: [id number] : 1955 Acct:[id number] Age/Sex: 69 / M Date of Service: 06/17/24 Loc: ED Accession Number: [id number] Procedure: XR chest 1V Ordering Provider: Robert Dale MD PROCEDURE: XR CHEST 1V INDICATIONS: chest pain TECHNIQUE: One view of the chest was acquired. COMPARISON: [facility], CR, XR CHEST 2V, 02/20/2024, 10:27. FINDINGS: Surgical changes and devices: None. Lungs and pleura: Lungs are clear. No pleural effusions or pneumothorax. Mediastinum: Mediastinal contours appear normal. Heart size is normal. Bones and chest wall: No suspicious bony lesions. Overlying soft tissues appear unremarkable. IMPRESSION: No acute cardiopulmonary pathology. Dictated by: Mitchel Santos M.D. on 06/17/2024 at 14:05 Approved by: Mitchel Santos M.D. on 06/17/2024 at 14:05 [facility] Narrative Medical decision making narrative: Patient here for reproducible chest pain and upper abdominal pain. Patient states has had increased activity in the past 2 weeks. 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 In addition he has started a new exercise regimen with light 10 lb weights with his arms. Pain is worse with deep breath and twisting of the trunk and leaning forward. Is not painful with palpation. Patient does occasionally smoke. No history of hypertension hyperlipidemia. No primary family history of coronary disease. Patient has low heart score. After history and exam, CBC CMP EKG troponin chest x-ray Toradol [facility] Medical records reviewed: No recent visit for this complaint Differential considered: Includes but not limited to STEMI non-STEMI angina musculoskeletal pain/chest strain costochondritis pleurisy Lab Test results independently reviewed as above. Pertinent findings: WBC 6.9 hemoglobin 15.4 sodium 137 potassium 4.6 INR 1.0 troponin less than 0.012, D- dimer 484 Independently reviewed EKG normal sinus rhythm rate [address] elevation or depression Imaging studies independently reviewed: Chest x-ray no acute finding Consultations: None indicated at this time, chest pain is reproducible chest wall pain. Treatments: Toradol Re-evaluations: 4:05 p.m. Reviewed results with patient. Patient discomfort improved and gone with Toradol with deep breath. Reviewed with them likely not cardiac in origin but is likely from exercising and stretching his chest wall muscles and abdominal wall muscles with working and exercising. Discussion: Appropriate for discharge home. Exam is reassuring. Patient has reproducible chest wall pain with deep breath movement and leaning forward. Clinically not DVT. Denies any dyspnea. Has no exertional chest pain or dyspnea with exercise and activity. Diagnosis: Chest wall strain Discharge Plan Departure Patient Disposition: Home Clinical Impression: Chest wall muscle strain Qualifiers: Encounter type: initial encounter Qualified Code(s): S29.011A - Strain of muscle and tendon of front wall of thorax, initial encounter Instructions: DI for Atypical Chest Pain, DI for Muscle Strain Activity Restrictions/Additional Instructions: Your exam and laboratory studies and imaging studies and EKG are reassuring. You likely strained the muscles in your chest wall and abdomen. May continue ibuprofen for pain. Please see family doctor for re-evaluation. Please call provided primary care provider phone number to obtain family doctor, . Return if worse if any questions or concerns Referrals: Matt,MD Neil [Primary Care Provider] - Stand Alone Forms: Patient Portal/API/Survey
[2024-06-17 15:23] VITALS: PULSE 60; O2SAT 99
[2024-06-17 15:25] VITALS: BP 151/90; PULSE 57; O2SAT 100
[2024-06-17 15:28] LABS: D Dimer 484 ng/ml (<500)
[2024-06-17] MEDS: KETOROLAC 30 MG/ML VIAL 15 MG IV (15:28)
[2024-06-17 15:30] VITALS: BP 122/74; PULSE 58; O2SAT 100
[2024-06-17 16:00] VITALS: BP 128/78; PULSE 59; O2SAT 100
[2024-06-17 16:09] VITALS: BP 126/79; PULSE 60; O2SAT 100
== END 2024-06-17 16:13 | disposition home or self-care (01) ==
PROVIDERS: Emergency Provider Emergency Medicine
DX: S29.011A Strain of muscle and tendon of front wall of thorax, initial encounter (principal); R10.10 Upper abdominal pain, unspecified
CPT/HCPCS: 36415; 71045; 80053; 82550; 83690; 83735; 83880; 84484; 85025; 85379; 85610; 85730; 93005; 96374; 99284; J1885